=== PATIENT | female | born 1945 | race Caucasian/White ===

== ENCOUNTER → 2016-07-23 | Outpatient (CLI) | payer MEDICARE, OTHER ==
[~2016-07-23] MED LIST: ATO40T PO; DEXTSYP35 PO; FLUT0.0535 NAS; FLUT250M2 INH; HYDR-2651 PO; LISI40TA PO; LORA-35 PO; LORA2CON PO; METF-312 PO; NAPR-604 PO; OMEP20CA5 OR; PROM25TA5 PO; SITA100T7 PO; TIOTCAP IN
[2016-07-23 16:09] LABS: Basophils # (auto) 0 uL; Basophils % (auto) 0.4 % (0.0-2.0); Eosinophils # (auto) 0.1 uL; Eosinophils % (auto) 1.2 % (0.0-7.0); Hematocrit 42.7 % (36.0-46.0); Hemoglobin 14.6 g/dL (12.2-16.2); Lymphocytes # (auto) 2.3 uL; Lymphocytes % (auto) 30.1 % (10.0-50.0); Mean Corpuscular Hemoglobin 32.3 pg (28.0-32.0); Mean Corpuscular Hgb Conc. 34.2 g/dL (32.0-36.0); Mean Corpuscular Volume 94.3 fL (80.0-100.0); Mean Platelet Volume 8.4 fL (7.4-10.4); Monocytes # (auto) 0.5 uL; Monocytes % (auto) 6.7 % (0.0-12.0); Neutrophils # (auto) 4.7 uL; Neutrophils % (auto) 61.6 % (37.0-80.0); Platelet Count (auto) 221 10^3/uL (140-450); Red Cell Distribution Width 14.9 % (11.6-16.0); White Blood Cell 7.7 10^3/uL (4.4-10.8)
[2016-07-23 16:26] LABS: Albumin 4.1 g/dL (3.4-5.0); BUN/Creatinine Ratio 16.1; Bilirubin, Total 0.5 mg/dL (0.2-1.0); Calcium 9.3 mg/dL (8.5-10.1); Potassium 3.2 mmol/L (3.5-5.1); Total Protein 7.7 g/dL (6.4-8.2)
== END | disposition home or self-care (01) ==
LOC: LAB 15:48
DX: M25.50 Pain in unspecified joint (principal); I10 Essential (primary) hypertension; D64.9 Anemia, unspecified; Z79.899 Other long term (current) drug therapy; M06.9 Rheumatoid arthritis, unspecified
CPT/HCPCS: 36415; 80053; 85025; 85652; 86141

== ENCOUNTER → 2016-12-29 | Outpatient (CLI) | payer MEDICARE, OTHER ==
[~2016-12-29] MED LIST changes: -METF-312 PO; +METF-370 PO; -OMEP20CA5 OR; +OMEP20CA74 OR
[2016-12-29 15:19] LABS: Basophils # (auto) 0 uL; Basophils % (auto) 0.4 % (0.0-2.0); CONDITION Y; Eosinophils # (auto) 0.1 uL; Eosinophils % (auto) 1.2 % (0.0-7.0); Hematocrit 41.9 % (36.0-46.0); Hemoglobin 14.3 g/dL (12.2-16.2); Lymphocytes # (auto) 2.6 uL; Lymphocytes % (auto) 23.3 % (10.0-50.0); Mean Corpuscular Hemoglobin 33.1 pg (28.0-32.0); Mean Corpuscular Hgb Conc. 34.3 g/dL (32.0-36.0); Mean Corpuscular Volume 96.8 fL (80.0-100.0); Monocytes # (auto) 0.7 uL; Monocytes % (auto) 6.3 % (0.0-12.0); Neutrophils # (auto) 7.7 uL; Neutrophils % (auto) 68.8 % (37.0-80.0); Platelet Count (auto) 251 10^3/uL (140-450); Red Cell Distribution Width 14.5 % (11.6-16.0); White Blood Cell 11.3 10^3/uL (4.4-10.8)
[2016-12-29 15:32] LABS: Calcium 9.3 mg/dL (8.5-10.1); Potassium 4.1 mmol/L (3.5-5.1)
[2016-12-29 15:34] LABS: BUN/Creatinine Ratio 9.4
[2016-12-29 15:44] LABS: Bilirubin, Total 0.7 mg/dL (0.2-1.0); Total Protein 7.7 g/dL (6.4-8.2)
== END | disposition home or self-care (01) ==
LOC: LAB 15:00
DX: M06.9 Rheumatoid arthritis, unspecified (principal); M25.30 Other instability, unspecified joint; M96.0 Pseudarthrosis after fusion or arthrodesis
CPT/HCPCS: 36415; 80053; 85025; 85652; 86141

== ENCOUNTER → 2017-03-16 | Outpatient (CLI) | payer MEDICARE, OTHER ==
[2017-03-16 14:58] LABS: Basophils # (auto) 0 uL; Basophils % (auto) 0.5 % (0.0-2.0); Eosinophils # (auto) 0.1 uL; Hematocrit 40.3 % (36.0-46.0); Hemoglobin 13.9 g/dL (12.2-16.2); Lymphocytes # (auto) 2.7 uL; Lymphocytes % (auto) 31.9 % (10.0-50.0); Mean Corpuscular Hemoglobin 33.4 pg (28.0-32.0); Mean Corpuscular Hgb Conc. 34.5 g/dL (32.0-36.0); Mean Corpuscular Volume 96.7 fL (80.0-100.0); Mean Platelet Volume 8.2 fL (6.9-10.8); Monocytes # (auto) 0.5 uL; Monocytes % (auto) 5.7 % (0.0-12.0); Neutrophils # (auto) 5.2 uL; Neutrophils % (auto) 60.9 % (37.0-80.0); Platelet Count (auto) 154 10^3/uL (140-450); Red Cell Distribution Width 15.1 % (11.8-14.3); White Blood Cell 8.5 10^3/uL (4.4-10.8)
[2017-03-16 15:30] LABS: Albumin 4.2 g/dL (3.4-5.0); BUN/Creatinine Ratio 16.9; Bilirubin, Total 0.8 mg/dL (0.2-1.0); Calcium 9.1 mg/dL (8.5-10.1); Potassium 3.7 mmol/L (3.5-5.1); Total Protein 7.6 g/dL (6.4-8.2)
== END | disposition home or self-care (01) ==
LOC: LAB 14:23
DX: I70.0 Atherosclerosis of aorta (principal); I10 Essential (primary) hypertension; E78.00 Pure hypercholesterolemia, unspecified; M06.9 Rheumatoid arthritis, unspecified; D64.9 Anemia, unspecified; M25.50 Pain in unspecified joint; Z79.899 Other long term (current) drug therapy
CPT/HCPCS: 36415; 80053; 85025; 85652; 86141

== ENCOUNTER 2018-01-07 18:08 | Emergency (ER) | payer MEDICARE, OTHER ==
[~2018-01-07] VITALS: Ht 167.6 cm; Wt 74.4 kg
[~2018-01-07 18:08] MED LIST changes: +ASPI-264 PO; -DEXTSYP35 PO; +FLUT0.05 NAS; -FLUT0.0535 NAS; +GLIP-116 PO; -HYDR-2651 PO; -NAPR-604 PO; +NAPR375T27 PO; -PROM25TA5 PO
[2018-01-07 21:00] VITALS: BP 114/70
[2018-01-07] MEDS ORDERED: HYDROcodone-ACET 10/325MG TAB PO ONE (21:00)
== END 2018-01-07 21:26 | disposition left against medical advice (07) ==
LOC: ER 18:08
DX: S42.355A Nondisplaced comminuted fracture of shaft of humerus, left arm, initial encounter for closed fracture (principal); E11.9 Type 2 diabetes mellitus without complications; E78.5 Hyperlipidemia, unspecified; I10 Essential (primary) hypertension; M19.90 Unspecified osteoarthritis, unspecified site; Z98.890 Other specified postprocedural states; Z90.710 Acquired absence of both cervix and uterus; Z91.81 History of falling; W01.0XXA Fall on same level from slipping, tripping and stumbling without subsequent striking against object, initial encounter; Y93.89 Activity, other specified; Y92.89 Other specified places as the place of occurrence of the external cause; Y99.8 Other external cause status
CPT/HCPCS: 73030; 73080

== ENCOUNTER 2018-01-12 07:28 | Inpatient (IN) | payer MEDICARE, OTHER ==
[~2018-01-12] VITALS: Ht 30.5 cm; Wt 45.4 kg
[2018-01-12 08:42] LABS: Basophils # (auto) 0 uL; Basophils % (auto) 0.5 % (0.0-2.0); Eosinophils # (auto) 0.1 uL; Eosinophils % (auto) 1.7 % (0.0-7.0); Hemoglobin 10.4 g/dL (12.2-16.2); Lymphocytes # (auto) 1.7 uL; Lymphocytes % (auto) 25.7 % (10.0-50.0); Mean Corpuscular Hemoglobin 31.5 pg (28.0-32.0); Mean Corpuscular Hgb Conc. 33.6 g/dL (32.0-36.0); Mean Corpuscular Volume 93.7 fL (80.0-100.0); Monocytes # (auto) 0.5 uL; Neutrophils # (auto) 4.2 uL; Neutrophils % (auto) 64.1 % (37.0-80.0); Platelet Count (auto) 207 10^3/uL (140-450); Red Blood Cells 3.31 10^6/uL (4.0-5.20); Red Cell Distribution Width 14.5 % (11.8-14.3); White Blood Cell 6.6 10^3/uL (4.4-10.8)
[2018-01-12 08:57] LABS: INR 0.95 (0.9-1.15); Partial Thromboplastin Time 29.2 sec (23.78-33.04); Prothrombin Time 10.2 sec (9.27-12.13)
[2018-01-12 09:01] LABS: BUN/Creatinine Ratio 14.9; Calcium 8.1 mg/dL (8.5-10.1); Potassium 3.6 mmol/L (3.5-5.1)
[2018-01-12] MEDS ORDERED: MIDAZOLAM HCL 1MG/1ML-2 ML VIAL ONE (09:09)
[2018-01-12] MEDS ORDERED: ROCURONIUM 10MG/ML 10ML VIAL IV ONE (09:10)
[2018-01-12] MEDS ORDERED: ETOMIDATE (2MG/ML) 20ML VIAL IV ONE (09:11)
[2018-01-12] MEDS ORDERED: ceFAZolin 1GM/50ML 100 ML IV ONE (09:51)
[2018-01-12] MEDS ORDERED: METOCLOPRAMIDE HCL 5MG/ml INJ 2ml VIAL ONE (10:14)
[2018-01-12] MEDS ORDERED: fentaNYL CITRATE 100 MCG/2 ML VL ONE (10:23)
[2018-01-12] MEDS ORDERED: ONDANSETRON HCL 4 MG/2 ML VIAL IV ONE (10:45)
[2018-01-12] MEDS ORDERED: ACCU-CHEK COMFORT CURVE STRIP VI ONE (10:45)
[2018-01-12] MEDS ORDERED: ALBUTEROL SULF 2.5 MG/0.5ML(0.5%) NEB SOLN NEB PRN (10:45)
[2018-01-12] MEDS ORDERED: BUPIVACAINE W/ EPINEPH 0.25% INJ 50ML MDV ONE (10:45)
[2018-01-12] MEDS ORDERED: NALOXONE HCL 0.4 MG/ML VIAL IV PRN (10:45)
[2018-01-12] MEDS ORDERED: SODIUM CHLORIDE LOCK 10 ML ONE (11:54)
[2018-01-12] MEDS ORDERED: ePHEDrine SULFATE 50 MG/ML AMP ONE (11:54)
[2018-01-12] MEDS ORDERED: KETOROLAC TROMETH 30 MG/ML 1ML VIAL ONE (12:57)
[2018-01-12] MEDS ORDERED: NEOSTIGMINE 1 MG/ML INJ (10mg/10ML VIAL) ONE (13:05)
[2018-01-12] MEDS ORDERED: GLYCOPYRROLATE 0.2 MG/ML 1ML VIAL ONE (13:05)
[2018-01-12] MEDS: MORPHINE SULFATE 4 MG/ML SYR/VIAL IV PRN ×4 (13:46→14:45)
[2018-01-12] MEDS ORDERED: LACTATED RINGER'S 1,000 ML IV SCH (13:48)
[2018-01-12] MEDS ORDERED: TEMAZEPAM 15 MG CAP PO PRN (14:00)
[2018-01-12] MEDS ORDERED: ACETAMINOPHEN 325 MG TAB PO PRN (14:00)
[2018-01-12] MEDS ORDERED: MORPHINE SULF INJ 2 MG/ML SYRINGE 1ML IV PRN (14:00)
[2018-01-12] MEDS ORDERED: NITROGLYCERIN 0.4 MG SL TAB SL PRN (14:00)
[2018-01-12] MEDS: SODIUM CHLOR 0.9% PF (SALINE LOCK) 10ML VIAL/SYR IV SCH ×2 (16:33→22:00)
[2018-01-12] MEDS: ceFAZolin 1GM/50ML 50 ML IV SCH ×2 (16:33→21:00)
[2018-01-12 17:00] VITALS: BP 136/67
[2018-01-12 17:25] VITALS: BP 136/67
[2018-01-12] MEDS: HYDROmorphone HCL 2 MG/ML VL IV PRN ×2 (18:56→23:22)
[2018-01-12 22:00] VITALS: BP 161/88
[2018-01-12] MEDS: DOCUSATE SOD 100 MG CAP PO SCH (22:02)
[2018-01-12] MEDS: oxyCODONE ER 10 MG TAB PO SCH (22:03)
[2018-01-13] MEDS: ceFAZolin 1GM/50ML 50 ML IV SCH ×3 (03:06→15:39)
[2018-01-13 04:45] VITALS: BP 151/98
[2018-01-13] MEDS: HYDROmorphone HCL 2 MG/ML VL IV PRN (04:59)
[2018-01-13] MEDS: SODIUM CHLOR 0.9% PF (SALINE LOCK) 10ML VIAL/SYR IV SCH ×3 (06:08→22:18)
[2018-01-13 09:00] VITALS: BP 134/80
[2018-01-13] MEDS: DOCUSATE SOD 100 MG CAP PO SCH ×2 (10:11→22:18)
[2018-01-13] MEDS: oxyCODONE ER 10 MG TAB PO SCH ×2 (10:11→22:19)
[2018-01-13] MEDS: HYDROcodone-ACET 10/325MG TAB PO PRN (12:02)
[2018-01-13 12:41] VITALS: BP 114/78
[2018-01-13] MEDS ORDERED: LISINOPRIL 20 MG TAB PO ONE (12:45)
[2018-01-13] MEDS ORDERED: DEXTROSE (50%) 50ML SYRG IV PRN (12:45)
[2018-01-13] MEDS ORDERED: HYDROmorphone HCL 2 MG/ML VL IV PRN (12:45)
[2018-01-13] MEDS ORDERED: ALBUTEROL SULF 2.5 MG/0.5ML(0.5%) NEB SOLN NEB PRN (12:45)
[2018-01-13 17:00] VITALS: BP 90/62
[2018-01-13] MEDS: InsuLIN REG 1unit/0.01ml Soln (100units/ml) SC SCH ×2 (18:40→22:00)
[2018-01-13] MEDS: ACCU-CHEK COMFORT CURVE STRIP VI SCH ×2 (18:41→22:20)
[2018-01-13] MEDS: IPRATROPIUM BROM 0.5 MG/2.5ML INH SOL NEB SCH (19:50)
[2018-01-13] MEDS: ALBUTEROL SULF 2.5 MG/0.5ML(0.5%) NEB SOLN NEB SCH (19:50)
[2018-01-13 20:31] VITALS: BP 90/67
[2018-01-13] MEDS: ATORVASTATIN 20 MG TAB PO SCH (22:19)
[2018-01-13 22:42] VITALS: BP 114/72
[2018-01-14 05:16] VITALS: BP 124/67
[2018-01-14] MEDS: SODIUM CHLOR 0.9% PF (SALINE LOCK) 10ML VIAL/SYR IV SCH ×4 (06:09→22:20)
[2018-01-14] MEDS: ACCU-CHEK COMFORT CURVE STRIP VI SCH ×4 (06:20→22:00)
[2018-01-14] MEDS: InsuLIN REG 1unit/0.01ml Soln (100units/ml) SC SCH ×4 (06:20→22:00)
[2018-01-14] MEDS: IPRATROPIUM BROM 0.5 MG/2.5ML INH SOL NEB SCH ×3 (06:39→12:02)
[2018-01-14] MEDS: ALBUTEROL SULF 2.5 MG/0.5ML(0.5%) NEB SOLN NEB SCH ×3 (06:40→12:03)
[2018-01-14 06:53] LABS: Basophils # (auto) 0 uL; Basophils % (auto) 0.4 % (0.0-2.0); Eosinophils # (auto) 0 uL; Eosinophils % (auto) 0.5 % (0.0-7.0); Hematocrit 28.6 % (36.0-46.0); Lymphocytes # (auto) 0.9 uL; Lymphocytes % (auto) 12.7 % (10.0-50.0); Mean Corpuscular Hemoglobin 32.5 pg (28.0-32.0); Mean Corpuscular Hgb Conc. 34.8 g/dL (32.0-36.0); Mean Corpuscular Volume 93.5 fL (80.0-100.0); Monocytes # (auto) 0.7 uL; Monocytes % (auto) 9.8 % (0.0-12.0); Neutrophils # (auto) 5.2 uL; Neutrophils % (auto) 76.6 % (37.0-80.0); Platelet Count (auto) 185 10^3/uL (140-450); Red Blood Cells 3.06 10^6/uL (4.0-5.20); Red Cell Distribution Width 14.6 % (11.8-14.3); White Blood Cell 6.8 10^3/uL (4.4-10.8)
[2018-01-14 07:17] LABS: BUN/Creatinine Ratio 12.8; Calcium 8.1 mg/dL (8.5-10.1)
[2018-01-14 08:32] LABS: Hematocrit 29.6 % (36.0-46.0)
[2018-01-14 09:00] VITALS: BP 100/58
[2018-01-14] MEDS: DOCUSATE SOD 100 MG CAP PO SCH ×2 (09:46→22:21)
[2018-01-14] MEDS: oxyCODONE ER 10 MG TAB PO SCH ×2 (09:53→22:21)
[2018-01-14] MEDS ORDERED: LISINOPRIL 20 MG TAB PO SCH (10:00)
[2018-01-14] MEDS ORDERED: PANTOPRAZOLE 40 MG TAB PO SCH (10:00)
[2018-01-14] MEDS: HYDROcodone-ACET 10/325MG TAB PO PRN ×2 (12:32→20:11)
[2018-01-14 13:00] VITALS: BP 121/70
[2018-01-14] MEDS ORDERED: POTASSIUM CHL 20 Meq TABLET PO ONE (15:00)
[2018-01-14 17:00] VITALS: BP 107/64
[2018-01-14] MEDS: ATORVASTATIN 20 MG TAB PO SCH (22:00)
[2018-01-14 22:10] VITALS: BP 106/62
[2018-01-15] MEDS: HYDROcodone-ACET 10/325MG TAB PO PRN ×2 (01:18→06:42)
[2018-01-15] MEDS: SODIUM CHLOR 0.9% PF (SALINE LOCK) 10ML VIAL/SYR IV SCH (05:25)
[2018-01-15 05:30] VITALS: BP 93/67
[2018-01-15] MEDS: ACCU-CHEK COMFORT CURVE STRIP VI SCH (06:41)
[2018-01-15] MEDS: InsuLIN REG 1unit/0.01ml Soln (100units/ml) SC SCH (06:41)
[2018-01-15 08:26] VITALS: BP 116/70
[2018-01-15 08:45] LABS: Hematocrit 28.5 % (36.0-46.0); Hemoglobin 9.8 g/dL (12.2-16.2)
[2018-01-15 09:08] VITALS: BP 116/70
== END 2018-01-15 09:44 | disposition home health service (06) | DRG 483 ==
LOC: SUR 07:28 → WEST WING 07:29
PROVIDERS: ADMIT Orthopaedic Surgery; ATTEND Internal Medicine
PROC: 0RRK0J6 Replacement of Left Shoulder Joint with Synthetic Substitute, Humeral Surface, Open Approach (ICD-10-PCS; 2018-01-12)
PROC: 0LB20ZZ Excision of Left Shoulder Tendon, Open Approach (ICD-10-PCS; principal; 2018-01-12 10:10)
DX: S42.202A Unspecified fracture of upper end of left humerus, initial encounter for closed fracture (principal); M85.812 Other specified disorders of bone density and structure, left shoulder; M75.22 Bicipital tendinitis, left shoulder; E66.9 Obesity, unspecified; Z68.30 Body mass index [BMI] 30.0-30.9, adult; M75.102 Unspecified rotator cuff tear or rupture of left shoulder, not specified as traumatic; J44.9 Chronic obstructive pulmonary disease, unspecified; E11.9 Type 2 diabetes mellitus without complications; F17.200 Nicotine dependence, unspecified, uncomplicated; I10 Essential (primary) hypertension; M81.0 Age-related osteoporosis without current pathological fracture; Z60.2 Problems related to living alone; W18.39XA Other fall on same level, initial encounter; Y93.89 Activity, other specified; Y92.89 Other specified places as the place of occurrence of the external cause; Y99.8 Other external cause status
CPT/HCPCS: 36415; 73020; 80048; 82962; 84132; 85014; 85018; 85025; 85610; 85730; 86850; 86900; 86901; 87081; A6257; J0690; J1815; J1885; J2250

== ENCOUNTER 2019-07-15 21:54 | Inpatient (IN) | payer OTHER ==
[~2019-07-15] VITALS: Ht 167.6 cm; Wt 82.3 kg
[~2019-07-15 21:54] MED LIST changes: -GLIP-116 PO; +GLIP10TA9 PO; +SOTA80TA PO
[2019-07-15 22:35] LABS: Basophils # (auto) 0 uL; Basophils % (auto) 0.3 % (0.0-2.0); Eosinophils # (auto) 0 uL; Eosinophils % (auto) 0.3 % (0.0-7.0); Hematocrit 43.4 % (36.0-46.0); Hemoglobin 14.8 g/dL (12.2-16.2); Lymphocytes # (auto) 0.6 uL; Lymphocytes % (auto) 6.1 % (10.0-50.0); Monocytes # (auto) 0.4 uL; Monocytes % (auto) 3.6 % (0.0-12.0); Neutrophils % (auto) 89.7 % (37.0-80.0); Platelet Count (auto) 137 10^3/uL (140-450); Red Blood Cells 4.48 10^6/uL (4.0-5.20); Red Cell Distribution Width 14.1 % (11.8-14.3)
[2019-07-15 22:52] LABS: Alanine Aminotransferase 52 U/L (13-56); Albumin 3.8 g/dL (3.4-5.0); Anion Gap 8 (5-15); Aspartate Aminotransferase 39 U/L (15-37); BUN/Creatinine Ratio 13.5; Blood Alcohol < 3.0 mg/dL (0-5); Blood Urea Nitrogen 13 mg/dL (7-18); Calcium 9.4 mg/dL (8.5-10.1); Carbon Dioxide 24 mmol/L (21-32); Chloride 99 mmol/L (98-107); GFR African American 73 mL/min; GFR Non-African American 60 mL/min; Glucose 292 mg/dL (74-106); Potassium 4.3 mmol/L (3.5-5.1); Sodium 131 mmol/L (136-145)
[2019-07-15 22:55] LABS: Alkaline Phosphatase 127 U/L (45-117); Bilirubin, Total 0.9 mg/dL (0.2-1.0); Total Protein 7.8 g/dL (6.4-8.2)
[2019-07-16] VITALS (7 sets, daily range): BP systolic 88–155; BP diastolic 53–89
[2019-07-16 00:01] LABS: Urine Mucus FEW (None Seen)
[2019-07-16 00:07] LABS: Urine Blood Negative /uL (Negative)
[2019-07-16 00:08] LABS: Urine Bacteria FEW /hpf (None Seen); Urine WBC 15-30 /hpf (0 - 5)
[2019-07-16 00:19] LABS: Amphetamine Screen, Urine NEGATIVE (NEGATIVE); Barbiturate Scree,Urine NEGATIVE (NEGATIVE); Benzodiazephine Screen, Urine NEGATIVE (NEGATIVE); Cannabinoid Screen, Urine NEGATIVE (NEGATIVE); Cocaine Screen, Urine NEGATIVE (NEGATIVE); Opiate Scree,Urine NEGATIVE (NEGATIVE); Phencyclidine Screen, Urine NEGATIVE (NEGATIVE)
[2019-07-16] MEDS ORDERED: LORazepam 2MG/ML-1ML VIAL ONE (01:31)
[2019-07-16] MEDS ORDERED: LORazepam 2MG/ML-1ML VIAL IM ONE (02:15)
[2019-07-16] MEDS ORDERED: cefTRIAXone 1GM/50ML D5W 50 ML IV ONE (02:30)
[2019-07-16] MEDS ORDERED: SODIUM CHLORIDE 0.9% 1,000 ML IV SCH (05:12)
[2019-07-16] MEDS ORDERED: ONDANSETRON HCL 4 MG/2 ML VIAL IV PRN (05:15)
[2019-07-16] MEDS ORDERED: ALBUTEROL SULF 2.5 MG/0.5ML(0.5%) NEB SOLN NEB PRN (05:15)
[2019-07-16] MEDS ORDERED: IPRATROPIUM BROM 0.5 MG/2.5ML INH SOL NEB PRN (05:15)
[2019-07-16] MEDS ORDERED: DOCUSATE SOD 100 MG CAP PO PRN (05:15)
[2019-07-16] MEDS ORDERED: NAPROXEN 375 MG TAB PO PRN (05:15)
[2019-07-16] MEDS ORDERED: DEXTROSE (50%) 50ML SYRG IV PRN (05:15)
[2019-07-16] MEDS ORDERED: IBUPROFEN 600 MG TAB PO ONE (06:15)
[2019-07-16] MEDS: PANTOPRAZOLE 40 MG TAB PO SCH (06:32)
[2019-07-16 07:44] LABS: Basophils # (auto) 0 uL; Basophils % (auto) 0.5 % (0.0-2.0); Eosinophils # (auto) 0 uL; Eosinophils % (auto) 0.3 % (0.0-7.0); Hematocrit 39.5 % (36.0-46.0); Hemoglobin 13.6 g/dL (12.2-16.2); Lymphocytes # (auto) 0.7 uL; Lymphocytes % (auto) 11.9 % (10.0-50.0); Mean Corpuscular Hemoglobin 32.8 pg (28.0-32.0); Mean Corpuscular Hgb Conc. 34.5 g/dL (32.0-36.0); Mean Corpuscular Volume 95.1 fL (80.0-100.0); Monocytes # (auto) 0.4 uL; Monocytes % (auto) 6.9 % (0.0-12.0); Neutrophils # (auto) 4.6 uL; Neutrophils % (auto) 80.4 % (37.0-80.0); Platelet Count (auto) 115 10^3/uL (140-450); Red Blood Cells 4.15 10^6/uL (4.0-5.20); Red Cell Distribution Width 14.2 % (11.8-14.3); White Blood Cell 5.7 10^3/uL (4.4-10.8)
[2019-07-16 08:05] LABS: BUN/Creatinine Ratio 15.2; Calcium 8.7 mg/dL (8.5-10.1); Potassium 3.4 mmol/L (3.5-5.1)
[2019-07-16] MEDS: SOTALOL HCL 80 MG TAB PO SCH ×3 (10:00→21:40)
[2019-07-16] MEDS: LISINOPRIL 20 MG TAB PO SCH ×2 (10:00→13:33)
[2019-07-16] MEDS ORDERED: PATIENTS OWN MEDICATION (Lisinopril 40 MG) PO SCH (10:00)
[2019-07-16] MEDS ORDERED: OMEPRAZOLE 20MG/10ML ORAL SUSP PO SCH (10:00)
[2019-07-16] MEDS ORDERED: LORazepam 0.5 MG TAB PO PRN (10:00)
[2019-07-16] MEDS: ASPirin-EC 325mg tab PO SCH (11:07)
[2019-07-16] MEDS: ACCU-CHEK COMFORT CURVE STRIP VI SCH ×3 (12:00→20:00)
[2019-07-16] MEDS: InsuLIN REG 1unit/0.01ml Soln (100units/ml) SC SCH ×3 (12:00→21:51)
[2019-07-16] MEDS: SODIUM CHLORIDE 0.9% 1,000 ML IV SCH (14:30)
[2019-07-16] MEDS: LEVOFLOXACIN 500MG 100 ML IV SCH (18:11)
[2019-07-16] MEDS ORDERED: cefTRIAXone 1GM/50ML D5W 50 ML IV SCH (21:00)
[2019-07-17] MEDS: ACCU-CHEK COMFORT CURVE STRIP VI SCH ×6 (03:55→20:00)
[2019-07-17] MEDS: InsuLIN REG 1unit/0.01ml Soln (100units/ml) SC SCH ×6 (04:08→20:00)
[2019-07-17 05:00] VITALS: BP 146/89
[2019-07-17] MEDS: IBUPROFEN 400 MG TAB PO PRN (05:23)
[2019-07-17] MEDS: PANTOPRAZOLE 40 MG TAB PO SCH (05:23)
[2019-07-17 06:15] LABS: Potassium 3.4 mmol/L (3.5-5.1)
[2019-07-17 06:17] LABS: Basophils # (auto) 0 uL; Basophils % (auto) 0.2 % (0.0-2.0); Eosinophils # (auto) 0 uL; Eosinophils % (auto) 0.6 % (0.0-7.0); Hematocrit 38.2 % (36.0-46.0); Hemoglobin 13.4 g/dL (12.2-16.2); Lymphocytes # (auto) 0.6 uL; Lymphocytes % (auto) 8.9 % (10.0-50.0); Mean Corpuscular Hemoglobin 33.5 pg (28.0-32.0); Mean Corpuscular Hgb Conc. 35.1 g/dL (32.0-36.0); Mean Corpuscular Volume 95.4 fL (80.0-100.0); Monocytes # (auto) 0.5 uL; Neutrophils # (auto) 5.2 uL; Neutrophils % (auto) 82.3 % (37.0-80.0); Platelet Count (auto) 105 10^3/uL (140-450); Red Blood Cells 4.01 10^6/uL (4.0-5.20); Red Cell Distribution Width 14.2 % (11.8-14.3); White Blood Cell 6.3 10^3/uL (4.4-10.8)
[2019-07-17] MEDS: LEVOFLOXACIN 500MG 100 ML IV SCH (09:55)
[2019-07-17] MEDS: SOTALOL HCL 80 MG TAB PO SCH ×2 (09:58→22:00)
[2019-07-17] MEDS: ASPirin-EC 325mg tab PO SCH (09:58)
[2019-07-17] MEDS: LISINOPRIL 20 MG TAB PO SCH (09:58)
[2019-07-17] MEDS: SODIUM CHLORIDE 0.9% 1,000 ML IV SCH (09:59)
[2019-07-17] MEDS ORDERED: POTASSIUM CHL 20MEQ/100ML 100 ML IV ONE (13:15)
[2019-07-17 20:00] VITALS: BP 89/62
[2019-07-17 22:00] VITALS: BP 105/60
[2019-07-18] MEDS: ACCU-CHEK COMFORT CURVE STRIP VI SCH ×5 (00:26→16:28)
[2019-07-18] MEDS: InsuLIN REG 1unit/0.01ml Soln (100units/ml) SC SCH ×5 (00:33→16:00)
[2019-07-18 05:00] VITALS: BP 97/49
[2019-07-18] MEDS: IBUPROFEN 400 MG TAB PO PRN (05:44)
[2019-07-18] MEDS: PANTOPRAZOLE 40 MG TAB PO SCH (05:45)
[2019-07-18 07:16] LABS: Basophils # (auto) 0 uL; Basophils % (auto) 0.6 % (0.0-2.0); Eosinophils # (auto) 0.1 uL; Eosinophils % (auto) 2.3 % (0.0-7.0); Hematocrit 36.7 % (36.0-46.0); Hemoglobin 12.5 g/dL (12.2-16.2); Lymphocytes # (auto) 1.1 uL; Lymphocytes % (auto) 18.8 % (10.0-50.0); Mean Corpuscular Hemoglobin 32.8 pg (28.0-32.0); Mean Corpuscular Hgb Conc. 34.1 g/dL (32.0-36.0); Monocytes # (auto) 0.6 uL; Monocytes % (auto) 10.3 % (0.0-12.0); Neutrophils # (auto) 3.8 uL; Platelet Count (auto) 103 10^3/uL (140-450); Red Blood Cells 3.82 10^6/uL (4.0-5.20); Red Cell Distribution Width 14.1 % (11.8-14.3); White Blood Cell 5.6 10^3/uL (4.4-10.8)
[2019-07-18 07:37] LABS: BUN/Creatinine Ratio 22.2; Calcium 9.1 mg/dL (8.5-10.1); Potassium 3.4 mmol/L (3.5-5.1)
[2019-07-18 08:43] VITALS: BP 107/65
[2019-07-18] MEDS: ASPirin-EC 325mg tab PO SCH (10:00)
[2019-07-18] MEDS: SOTALOL HCL 80 MG TAB PO SCH (10:00)
[2019-07-18] MEDS: LISINOPRIL 20 MG TAB PO SCH (10:00)
[2019-07-18] MEDS: LEVOFLOXACIN 500MG 100 ML IV SCH (12:01)
[2019-07-18 13:00] VITALS: BP 98/60
[2019-07-18 17:00] VITALS: BP 116/63
[2019-07-18] MEDS ORDERED: LEVO500T21 PO (18:00)
[2019-07-18 18:12] VITALS: BP 116/63
== END 2019-07-18 18:50 | disposition home health service (06) | DRG 70 ==
LOC: EDBD 21:54 → ER 21:54 → TELE 21:55 → TELE-CENTR 07-16 08:24
PROVIDERS: ADMIT Hospitalist; ATTEND Internal Medicine
DX: G93.41 Metabolic encephalopathy (principal); J18.9 Pneumonia, unspecified organism; N39.0 Urinary tract infection, site not specified; J44.0 Chronic obstructive pulmonary disease with (acute) lower respiratory infection; G89.4 Chronic pain syndrome; D69.6 Thrombocytopenia, unspecified; I11.0 Hypertensive heart disease with heart failure; R62.7 Adult failure to thrive; F17.200 Nicotine dependence, unspecified, uncomplicated; I50.9 Heart failure, unspecified; M54.5 Low back pain; E11.9 Type 2 diabetes mellitus without complications; E78.5 Hyperlipidemia, unspecified; Z79.82 Long term (current) use of aspirin; Z79.899 Other long term (current) drug therapy; Z81.3 Family history of other psychoactive substance abuse and dependence; Z82.49 Family history of ischemic heart disease and other diseases of the circulatory system; Z82.3 Family history of stroke; Z83.3 Family history of diabetes mellitus; Z88.6 Allergy status to analgesic agent; Z90.710 Acquired absence of both cervix and uterus; Z95.0 Presence of cardiac pacemaker; Z87.440 Personal history of urinary (tract) infections
CPT/HCPCS: 36415; 51702; 70450; 71045; 80048; 80053; 80307; 80320; 81001; 82962; 83036; 83880; 84484; 85025; 87040; 87086; 96365; 96372; 97116; 97163; 97530; G0378; J0696; J1815; J1956; J3480